=== PATIENT | female | born 1970 | race Hispanic/Latino ===

== ENCOUNTER 2018-07-16 11:03 | Outpatient (CLI) | payer OTHER | END 2018-07-16 11:04 | disposition home or self-care (01) | LOC: LAB 11:03 ==

== ENCOUNTER → 2018-09-14 | Outpatient (CLI) | payer OTHER | LOC: LAB 12:46 ==

== ENCOUNTER 2018-10-22 11:15 | Emergency (ER) | payer OTHER ==
[2018-10-22 11:22] VITALS: BMI 33.6
[2018-10-22 11:28] VITALS: O2SAT 98
--- NOTE | 2018-10-22 11:34 | ED PDOC ---
Arrival/HPI - General Chief Complaint: Wound Check Time Seen by Provider: 10/22/18 11:21 - History of Present Illness Narrative History of Present Illness (Text): 10/22/18 11:32 Patient is a 48 y/o F, who follows with Dr. Rose at [facility] pending shoulder rep lacement, currently with shoulder spacer, s/p previously infected and removed spacer, finished course of antibiotics and picc line removed 2 days ago, presenting with wound opening. She reports that just prior to arrival a dime sized area of the superior aspect of the R shoulder wound opened and had copious red tinged discharge. No current active bleeding. 10/22/18 12:30 Past Medical History - Cardiac Hx Hypertension: Yes - Endocrine/Metabolic Hx Diabetes Mellitus Type 2: Yes - Musculoskeletal/Rheumatological Other/Comment: x4 right shoulder surgery, d/c PICC - Gastrointestinal Hx Gastrointestinal Disorders: No - Genitourinary/Gynecological Hx Genitourinary Disorders: No - Psychiatric Hx Anxiety: Yes Hx Substance Use: No Family/Social History Family/Social History: No Known Family HX Smoking Status: Never Smoked Hx Alcohol Use: No Hx Substance Use: No Allergies/Home Meds Allergies/Adverse Reactions: Allergies No Known Allergies Allergy (Verified 10/22/18 11:22) Review of Systems - Review of Systems Constitutional: absent: Fatigue, Weight Change, Fevers Respiratory: absent: SOB, Cough, Sputum, Wheezing Cardiovascular: absent: Chest Pain Gastrointestinal: absent: Abdominal Pain, Constipation, Diarrhea, Nausea, Vomiting Musculoskeletal: Arthralgias (R shoulder) Neurological: absent: Headache, Dizziness, Focal Weakness, Gait Changes, Speech Changes, Facial Droop Physical Exam Vital Signs Temp Pulse Resp BP Pulse Ox 10/22/18 11:23 98.2 F 83 18 137/70 98 Temperature: Afebrile Blood Pressure: Normal Pulse: Regular Respiratory Rate: Normal Appearance: Positive for: Well-Appearing, Non-Toxic, Comfortable Pain Distress: None Mental Status: Positive for: Alert and Oriented X 3 - Systems Exam Head: Present: Atraumatic, Normocephalic Pupils: Present: PERRL Extroacular Muscles: Present: EOMI Conjunctiva: Present: Normal Mouth: Present: Moist Mucous Membranes Neck: Present: Normal Range of Motion. No: Meningeal Signs, MIDLINE TENDERNESS Back: Present: Normal Inspection. No: CVA Tenderness, Midline Tenderness Upper Extremity: Present: NORMAL PULSES, Other (decreased ROM at R shoulder (baseline per patient), distal pulses intact, dime sized area of opening to superior aspect of R shoulder suture line, no active bleeding. ). No: Normal ROM Lower Extremity: Present: Normal Inspection. No: Edema Neurological: Present: Gait Normal Psychiatric: Present: Alert, Oriented x 3 Medical Decision Making ED Course and Treatment: 10/22/18 11:[address] Called Dr. Rose at [phone] 10/22/18 11:[address] Rose, who requests transfer to [facility] for further orthopedic evaluation. 10/22/18 11:58 Discussed case w/ Dr. Goel ([facility] ER MD), who accepts patient. Sushma called for transfer and patient transferred Disposition/Present on Arrival - Present on Arrival Any Indicators Present on Arrival: No History of DVT/PE: No History of Uncontrolled Diabetes: No Urinary Catheter: No History of Decub. Ulcer: No History Surgical Site Infection Following: None - Disposition Have Diagnosis and Disposition been Completed?: Yes Diagnosis: Postoperative wound breakdown Disposition: Transfer [facility] Disposition Time: 11:56 Patient Plan: Transfer To ([facility]) Condition: FAIR Referrals: Ahmet WILSON,Tee Davies MD [Primary Care Provider] - Follow up with primary Forms: [employer] (Mongolian)
[2018-10-22] MEDS ORDERED: Oxycodone/Acetaminophen 5/325 mg Tab PO STA (11:35)
[2018-10-22 12:22] VITALS: BP 130/77; TEMP 98.4
[2018-10-22 12:24] VITALS: PULSE 88; RESP 18
== END 2018-10-22 12:24 | disposition short-term general hospital (02) ==
LOC: ED 11:15
DX: T81.31XA Disruption of external operation (surgical) wound, not elsewhere classified, initial encounter (principal); E11.9 Type 2 diabetes mellitus without complications; I10 Essential (primary) hypertension